=== PATIENT | male | born 1995 | race Caucasian/White ===

== ENCOUNTER 2021-05-30 19:16 | Emergency (ER) | payer SELFPAY ==
[2021-05-30 20:01] LABS: HEMOGLOBIN 16.4 gm/dl (14.0-17.5); RED BLOOD COUNT 5.28 M/UL (4.20-5.50); WHITE BLOOD COUNT 8.6 K/UL (4.5-11.0)
[2021-05-30 21:28] LABS: BUN/CREATININE RATIO 15 (0-10)
== END 2021-05-30 23:31 | disposition home or self-care (01) ==
LOC: ER1 19:16
PROVIDERS: Physician Assistant Medical
DX: H53.8 Other visual disturbances (principal); Z72.820 Sleep deprivation; F17.200 Nicotine dependence, unspecified, uncomplicated
CPT/HCPCS: 80053; 82550; 82553; 83874; 84484; 85025; 93005; 99284